=== PATIENT | female | born 1945 | race Caucasian/White ===

== ENCOUNTER 2018-11-09 03:32 | Observation (INO) | payer OTHER, BC ==
--- NOTE | 2018-11-09 03:34 | PDOC ---
History of Present Illness - General Chief Complaint: Irregular Heart Beat Stated Complaint: PALPITATIONS Time Seen by Provider: 11/09/18 03:34 - History of Present Illness Initial Comments: 11/09/18 03:54 This 72-year-old woman with a history of hyperlipidemia/osteoporosis presents with approximately 4 hour history of palpitations. Approximately 10:30 PM last night, she had onset of "fluttering" in her chest along with neck tightness and mild lightheadedness. She has had similar but much shorter (minutes long) episodes of the symptoms in the last few weeks. Previous episodes resolve spontaneously. She has a history of PVCs and has been seen by Dr. Schwab in the past(referred by her PMD, Dr Izaguirre). She has been told that she has mild bilateral carotid stenosis; she has been on statin medications for hyper lipidemia. No previous episodes of SVT or other sustained arrhythmia Past History - Past Medical History Allergies/Adverse Reactions: Allergies Allergy/AdvReac Type Severity Reaction Status Date / Time Penicillins Allergy Verified 07/18/13 23:59 Home Medications: Ambulatory Orders Calcium Carbonate [Calcium] 500 mg PO DAILY 07/19/13 Aspirin [Aspirin EC] 81 mg PO DAILY 11/09/18 Pravastatin Sodium [Pravachol (Nf)] 40 mg PO HS 11/09/18 - Immunization History Td Vaccination: Yes Immunization Up to Date: (UNSURE) - Suicide/Smoking/Psychosocial Hx Smoking History: Unknown if ever smoked Number of Cigarettes Smoked Daily: 0 Review of Systems - Review of Systems Able to Perform ROS?: Yes Comments:: 12 point review of systems is negative except for what is noted in the history of present illness *Physical Exam - Vital Signs Last Vital Signs Temp Pulse Resp BP Pulse Ox 97.7 F 87 14 108/80 100 11/09/18 03:32 11/09/18 07:13 11/09/18 07:13 11/09/18 07:13 11/09/18 07:13 - Physical Exam Comments: GENERAL: Adult female, alert and oriented 3, in no acute distress HEAD: Normal with no signs of trauma. EYES: PERRLA, EOMI, sclera anicteric, conjunctiva clear. ENT: Ears normal, nares patent, oropharynx clear without exudates. Dry mucous membranes. NECK: Normal range of motion, supple without lymphadenopathy, JVD, or masses. LUNGS: Breath sounds equal, clear to auscultation bilaterally. No wheezes, and no crackles. HEART: Regular, tachycardic; no murmur, rub or gallop appreciated. ABDOMEN:.normal bowel sounds No guarding,tenderness or rebound.No masses No distention. EXTREMITIES: Normal range of motion, no edema. No clubbing or cyanosis. No erythema, or tenderness. NEUROLOGICAL: Cranial nerves II through XII grossly intact. Normal speech. No focal neurological deficits. MUSCULOSKELETAL: Back non-tender to palpation, no CVA tenderness SKIN: Warm, Dry, normal turgor, no rashes or lesions noted. Moderate Sedation - Procedure Monitoring Vital Signs: Procedure Monitoring Vital Signs Temperature 97.7 F 11/09/18 03:32 Pulse Rate 87 11/09/18 07:13 Respiratory Rate 14 11/09/18 07:13 Blood Pressure 108/80 11/09/18 07:13 O2 Sat by Pulse Oximetry (%) 100 11/09/18 07:13 ED Treatment Course - LABORATORY CBC & Chemistry Diagram: 11/09/18 03:55 11/09/18 03:55 - ADDITIONAL ORDERS Additional order review: Laboratory Results 11/09/18 11/09/18 03:55 03:55 PT with INR 12.60 INR 1.07 Sodium 139 Potassium 3.9 Chloride 106 Carbon Dioxide 25 Anion Gap 9 BUN 18 Creatinine 1.0 Creat Clearance w eGFR 54.35 Random Glucose 100 Calcium 9.0 Total Bilirubin 0.3 AST 18 ALT 27 Alkaline Phosphatase 95 Creatine Kinase 68 Troponin I 0.07 H Total Protein 6.8 Albumin 3.6 11/09/18 03:55 RBC 4.46 MCV 94.4 MCHC 34.7 RDW 12.7 MPV 7.6 Neutrophils % 60.4 Lymphocytes % 27.6 Monocytes % 10.5 H Eosinophils % 1.1 Basophils % 0.4 - Medications Given in the ED: ED Medications Discontinued Medications Generic Name Dose Route Start Last Admin Trade Name Freq PRN Reason Stop Dose Admin Adenosine 6 mg 11/09/18 04:04 11/09/18 04:10 Adenocard - IVPUSH 11/09/18 04:05 6 mg ONCE ONE Administration Adenosine 6 mg 11/09/18 07:11 11/09/18 07:13 Adenocard - IVPUSH 11/09/18 07:12 6 mg ONCE ONE Administration Medical Decision Making - Medical Decision Making 11/09/18 04:22 This 72-year-old woman with a history of HLD and PVCs but no other cardiac issues known presents with several hour history of palpitations. Exam as noted. Twelve-lead electrocardiogram reveals narrow complex tachycardia at 176/minute without evidence of irregularity. No ST or T-wave abnormalities seen. EKG most consistent with SVT. Adenosine 6 mg IVP administered with prompt resolution of normal sinus rhythm . Repeat 12-lead electrocardiogram reveals normal sinus rhythm at 94 bpm. No evidence of acute ST or T-wave abnormalities. She has had occasional PVCs seen on monitor but no other arrhythmia present currently. Patient is alert and comfortable without further sensation of chest fluttering or neck tightness CBC/chemistry profile/troponin/INR sent 11/09/18 06:22 Patient continues to be comfortable in NSR heart rate averaging 90/ min and blood pressure most recently measured at 111/60. Laboratory evaluation is normal except for troponin of 0.07. 11/09/18 06:35 Case discussed with , patient will be admitted telemetry observation [facility]. 11/09/18 07:04 Patient called out that she has recurrence of fluttering in her chest Monitor reveals SVT recurrence. 11/09/18 07:17 Case signed out to Dr Solis NSR restored with Adenosine 6mg as per Dr Solis Case discussed with Dr Whitley : Metoprolol 25mg PO ordered *DC/Admit/Observation/Transfer Diagnosis at time of Disposition: History of supraventricular tachycardia, Elevated troponin - Discharge Dispostion Condition at time of disposition: Stable Decision to Admit order: Yes Decision to Admit order Date/Time: Decision to Admit Order Category Date Time Status Decision to Admit to Hospital Routine Admission 11/09/18 06:36 Active - Referrals - Patient Instructions - Post Discharge Activity
[2018-11-09] MEDS ORDERED: ADENOSINE 6 MG/2 ML VIAL IVPUSH ONE ×4 (04:04→07:11)
[2018-11-09 05:01] LABS: BASO % 0.4 % (0-2.0); EOS % 1.1 % (0-4.5); HEMATOCRIT 42.1 % (32.4-45.2); HEMOGLOBIN 14.6 GM/dL (10.7-15.3); LYMPH % 27.6 % (8-40); MCH 32.8 pg (25.7-33.7); MCHC 34.7 g/dl (32.0-36.0); MEAN CELL VOLUME 94.4 fl (80-96); MEAN PLT VOLUME 7.6 fl (7.5-11.1); MONO % 10.5 % (3.8-10.2); NEUT % 60.4 % (42.8-82.8); PLATELET COUNT 194 K/MM3 (134-434); RBC 4.46 M/mm3 (3.60-5.2); RDW 12.7 % (11.6-15.6); WHITE BLOOD COUNT 6.5 K/mm3 (4.0-10.0)
[2018-11-09 05:12] LABS: INR 1.07 (0.83-1.09); PROTHROMBIN TIME (PATIENT) 12.6 SEC (9.7-13.0)
[2018-11-09 06:17] LABS: ALBUMIN 3.6 g/dl (3.4-5.0); ALK PHOS 95 U/L (45-117); ANION GAP 9 MMOL/L (8-16); BILIRUBIN,TOTAL 0.3 mg/dL (0.2-1); BLOOD UREA NITROGEN 18 mg/dL (7-18); CHLORIDE 106 mmol/L (98-107); CO2 25 mmol/L (21-32); GLUCOSE,RANDOM 100 mg/dL (74-106); POTASSIUM 3.9 mmol/L (3.5-5.1); SGOT/AST 18 U/L (15-37); SGPT/ALT 27 U/L (13-61); SODIUM 139 mmol/L (136-145); TOT PROT 6.8 g/dl (6.4-8.2)
[2018-11-09] MEDS ORDERED: METOPROLOL TARTRATE 25 MG TABLET (FP) PO ONE (07:16)
[2018-11-09] MEDS ORDERED: METOPROLOL TARTRATE 50 MG TABLET (FP) ONE (07:24)
[2018-11-09 09:40] VITALS: BMI 21.5
--- NOTE | 2018-11-09 11:01 | HP ---
Admitting History and Physical - Admission Chief Complaint: palpitations History of Present Illness: 72 year old female with a history of hyperlipidemia/osteoporosis presented with approximately 4 hours of palpitations per ED report. Pt states she had some flutterings 2 weeks ago that went away. Then starting Saturday she did not feel well and wanted to rest but went to baby sit her grand children. Yesterday , she woke up and still didn't feel well, however did not take her pulse. She went downtown to a play, when she got home around 1030pm she started having palpitations, her neck felt tight and she couldn't lay flat. She was seen by Dr. Schwab for palpitations in the past however was only put on lipitor. In ED received adenosine x2 and started metoprolol. Pt is currently stable, she denies palpitations, cp, sob, dizziness, she wants to rest. History Source: Patient Limitations to Obtaining History: No Limitations - Past Medical History Cardiovascular: Yes: Hyperlipdemia ...: No - Smoking History Smoking history: Unknown if ever smoked Have you smoked in the past 12 months: No Aproximately how many cigarettes per day: 0 - Alcohol/Substance Use Hx Alcohol Use: No - Social History Usual Living Arrangement: Yes: With Spouse ADL: Independent Occupation: retired rn History of Recent Travel: No Home Medications - Allergies Allergies/Adverse Reactions: Allergies Allergy/AdvReac Type Severity Reaction Status Date / Time Penicillins Allergy Verified 07/18/13 23:59 - Home Medications Home Medications: Ambulatory Orders Calcium Carbonate [Calcium] 500 mg PO DAILY 07/19/13 Aspirin [Aspirin EC] 81 mg PO DAILY 11/09/18 Pravastatin Sodium [Pravachol (Nf)] 40 mg PO HS 11/09/18 Review of Systems - Review of Systems Constitutional: reports: No Symptoms Eyes: reports: No Symptoms HENT: reports: No Symptoms Neck: reports: No Symptoms Cardiovascular: reports: Palpitations Respiratory: reports: No Symptoms Gastrointestinal: reports: No Symptoms Genitourinary: reports: No Symptoms Musculoskeletal: reports: No Symptoms Integumentary: reports: No Symptoms Neurological: reports: No Symptoms Endocrine: reports: No Symptoms Hematology/Lymphatic: reports: No Symptoms Psychiatric: reports: No Symptoms Physical Examination Vital Signs: Vital Signs Temperature 98 F 11/09/18 09:27 Pulse Rate 77 11/09/18 09:27 Respiratory Rate 18 11/09/18 09:27 Blood Pressure 108/56 L 11/09/18 09:27 O2 Sat by Pulse Oximetry (%) 96 11/09/18 09:03 Constitutional: Yes: Well Nourished HENT: Yes: Other (dry mm) Neck: Yes: WNL Cardiovascular: Yes: Pulse Irregular, S1, S2 Respiratory: Yes: Regular, CTA Bilaterally Gastrointestinal: Yes: Normal Bowel Sounds, Soft Renal/: Yes: WNL Musculoskeletal: Yes: WNL Extremities: Yes: WNL Edema: No Peripheral Pulses WNL: Yes Integumentary: Yes: WNL Neurological: Yes: Alert, Oriented, Cran Nerves II-XII Intact Psychiatric: Yes: Alert, Oriented Labs: CBC, BMP 11/09/18 03:55 11/09/18 03:55 Imaging - Results Cat Scan: Report Reviewed (Head CT neg) Problem List - Problems (1) Elevated troponin Code(s): R74.8 - ABNORMAL LEVELS OF OTHER SERUM ENZYMES (2) History of supraventricular tachycardia Code(s): Z86.79 - PERSONAL HISTORY OF OTHER DISEASES OF THE CIRCULATORY SYSTEM Assessment/Plan 1. SVT - Now in SR after adenosine 6mg x2 - Given Metoprolol 25mg x1 - Start toprol xl 25mg daily now, monitor response - Cardiology consulted - Cont telemetry monitoring 2. Elevated trop - Repeat now - Likely due to above episode 2. HLD - Cont statin 3. DVT - Lovenox sq Visit type - Emergency Visit Emergency Visit: Yes ED Registration Date: 11/09/18 Care time: The patient presented to the Emergency Department on the above date and was hospitalized for further evaluation of their emergent condition. - New Patient This patient is new to me today: Yes Date on this admission: 11/09/18 - Critical Care Critical Care patient: No
[2018-11-09] MEDS: metoPROLOL SUCCINATE 25 MG TAB.SR.24H (FP) PO SCH (12:15)
--- NOTE | 2018-11-09 14:27 | CON.CARD ---
Consult Consult Specialty:: cardiology Reason for Consultation:: Palpitations; SVT - History of Present Illness Chief Complaint: Pt A&Ox3; tired; no chest pain or dyspnea. 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 Approximately 10:30 PM last night, she had onset of "fluttering" in her chest along with neck tightness and mild lightheadedness. She has had similar but much shorter (minutes long) episodes of the symptoms in the last few weeks. Previous episodes resolved spontaneously. She has a history of PVCs and has been seen by Dr. Schwab in the past(referred by her PMD, Dr Izaguirre). She has been told that she has mild bilateral carotid aretery stenosis; she has been on statin medications for hyperlipidemia (atorvastatin led to severe leg pains; she has been on pravastatin 40 mg qhs since 11/2017 with no adverse effects). No known previous episodes of SVT or other sustained arrhythmia, but the recent shorter episodes of palpitations were not recorded on EKG or Holter. - History Source History Provided By: Patient, Medical Record Limitations to Obtaining History: No Limitations - Past Medical History Cardio/Vascular: Yes: Hyperlipdemia Reproductive: Yes: Postmenopausal ...: No - Alcohol/Substance Use Hx Alcohol Use: No - Smoking History Smoking history: Unknown if ever smoked Have you smoked in the past 12 months: No Aproximately how many cigarettes per day: 0 - Social History ADL: Independent Occupation: retired rn History of Recent Travel: No Home Medications - Allergies Allergies/Adverse Reactions: Allergies Allergy/AdvReac Type Severity Reaction Status Date / Time Penicillins Allergy Verified 07/18/13 23:59 - Home Medications Home Medications: Ambulatory Orders Calcium Carbonate [Calcium] 500 mg PO DAILY 07/19/13 Aspirin [Aspirin EC] 81 mg PO DAILY 11/09/18 Pravastatin Sodium [Pravachol (Nf)] 40 mg PO HS 11/09/18 Family Disease History - Family Disease History Family Disease History: Heart Disease: Father ( of [place] age 83), Other: Mother (HTN; of CVA age 83) Review of Systems - Review of Systems Constitutional: reports: No Symptoms Eyes: reports: No Symptoms HENT: reports: No Symptoms Neck: reports: No Symptoms Cardiovascular: reports: Palpitations Respiratory: reports: No Symptoms Gastrointestinal: reports: No Symptoms Genitourinary: reports: No Symptoms Breasts: reports: No Symptoms Reported Musculoskeletal: reports: No Symptoms Integumentary: reports: No Symptoms Neurological: reports: No Symptoms Endocrine: reports: No Symptoms Hematology/Lymphatic: reports: No Symptoms Psychiatric: reports: No Symptoms - Risk Factors Known Risk Factors: Yes: Age Vital Signs: Vital Signs Temperature 98.9 F 11/09/18 14:13 Pulse Rate 86 11/09/18 14:13 Respiratory Rate 16 11/09/18 14:13 Blood Pressure 115/53 L 11/09/18 14:13 O2 Sat by Pulse Oximetry (%) 96 11/09/18 09:03 Constitutional: Yes: Anxious Eyes: Yes: WNL HENT: Yes: WNL Neck: Yes: WNL Respiratory: Yes: WNL Gastrointestinal: Yes: WNL Renal/: No: Anuria Cardiovascular: Yes: WNL JVD: No Carotid Bruit: No PMI: Non-Displaced Heart Sounds: Yes: S1, S2 Musculoskeletal: Yes: WNL Extremities: Yes: WNL Edema: No Peripheral Pulses WNL: Yes Integumentary: Yes: WNL Neurological: Yes: WNL Psychiatric: Yes: WNL - Other Data Labs, Other Data: CBC, BMP 11/09/18 03:55 11/09/18 03:55 INR, PTT INR 1.07 (0.83-1.09) 11/09/18 03:55 Troponin, BNP 11/09/18 11/09/18 03:55 11:56 Troponin I 0.07 H 0.23 H Troponin, BNP 11/09/18 11/09/18 03:55 11:56 Troponin I 0.07 H 0.23 H Abnormal Lab Results 11/09/18 11/09/18 11/09/18 03:55 03:55 11:56 Monocytes % 10.5 H Troponin I 0.07 H 0.23 H Triglycerides 11/09/18 11:56 Monocytes % Troponin I Triglycerides 157 H Ejection Fraction %: LVEF > or = 40 % Imaging - Results Chest X-ray: Image Reviewed EKG: Image Reviewed Other: Image Reviewed (telemetry: NSR; occasional PVCs) Problem List - Problems (1) Osteoporosis Code(s): M81.0 - AGE-RELATED OSTEOPOROSIS W/O CURRENT PATHOLOGICAL FRACTURE (2) Hyperlipidemia Assessment/Plan: On pravastatin. F/u lipid profile. Code(s): E78.5 - HYPERLIPIDEMIA, UNSPECIFIED (3) Elevated troponin Assessment/Plan: see under "hx of SVT" Code(s): R74.8 - ABNORMAL LEVELS OF OTHER SERUM ENZYMES (4) History of supraventricular tachycardia Assessment/Plan: Pt has been having palpitations over the past several weeks. Now with episode lasting about 4 hours. TNI 0.07-->0.23; CK wnl X 2; tni elevation likely from demand ischemia due to SVT x hours. EKG: initially SVT; now normal sinus rhythm; no acute ST-T changes, despite TNI elevation. Plan: Started metoprolol ER 25 mg daily; f/u BP and HR (years ago, pt said her HR was in the 40s, but she believes it was a machine error). F/u TSH. Pt for f/u with insurance claims adjuster (Dr. Schwab) as outpatient. Discussed options (continued medications; ablation therapy) with her. Code(s): Z86.79 - PERSONAL HISTORY OF OTHER DISEASES OF THE CIRCULATORY SYSTEM
[2018-11-09 15:32] LABS: CHOLESTEROL 173 mg/dL (50-200); HDL CHOLESTEROL 58 mg/dL (40-60); LDL CHOLESTEROL (ONLY DFH) 84 mg/dl (5-100); TRIGLYCERIDES 157 mg/dL (0-150)
[2018-11-09] MEDS ORDERED: METOPROLOL TARTRATE 25 MG TABLET (FP) PO SCH (22:00)
--- NOTE | 2018-11-09 22:13 | EKG ---
Test Reason : Blood Pressure : / mmHG Vent. Rate : 175 BPM Atrial Rate : 178 BPM P-R Int : 000 ms QRS Dur : 076 ms QT Int : 276 ms P-R-T Axes : 000 025 066 degrees QTc Int : 471 ms SUPRAVENTRICULAR TACHYCARDIA NONSPECIFIC ST ABNORMALITY ABNORMAL ECG NO PREVIOUS ECGS AVAILABLE Confirmed by MERY RUSH MD ([id number]) on 11/09/2018 10:13:23 PM Referred By: MD BYRNE Confirmed By:MERY RUSH MD
--- NOTE | 2018-11-09 22:13 | EKG ---
Test Reason : Blood Pressure : / mmHG Vent. Rate : 083 BPM Atrial Rate : 083 BPM P-R Int : 164 ms QRS Dur : 074 ms QT Int : 384 ms P-R-T Axes : 069 019 041 degrees QTc Int : 451 ms NORMAL SINUS RHYTHM NORMAL ECG WHEN COMPARED WITH ECG OF 09-NOV-2018 07:49, NO SIGNIFICANT CHANGE WAS FOUND Confirmed by MERY RUSH MD ([id number]) on 11/09/2018 10:13:10 PM Referred By: Vj HYDE Confirmed By:MERY RUSH MD
--- NOTE | 2018-11-09 22:13 | EKG ---
Test Reason : Blood Pressure : / mmHG Vent. Rate : 078 BPM Atrial Rate : 078 BPM P-R Int : 160 ms QRS Dur : 072 ms QT Int : 384 ms P-R-T Axes : 072 012 050 degrees QTc Int : 437 ms NORMAL SINUS RHYTHM NORMAL ECG WHEN COMPARED WITH ECG OF 09-NOV-2018 04:22, NO SIGNIFICANT CHANGE WAS FOUND Confirmed by MERY RUSH MD ([id number]) on 11/09/2018 10:13:13 PM Referred By: MAAME BLACKWOOD Confirmed By:MERY RUSH MD
[2018-11-10 08:17] LABS: ALBUMIN 3.2 g/dl (3.4-5.0); ALK PHOS 77 U/L (45-117); ANION GAP 7 MMOL/L (8-16); BILIRUBIN,TOTAL 0.5 mg/dl (0.2-1); BLOOD UREA NITROGEN 13 mg/dl (7-18); CALCIUM 8.7 mg/dl (8.5-10); CHLORIDE 103 mmol/L (98-107); CO2 27 mmol/L (21-32); CREATININE 0.9 mg/dl (0.55-1.3); GLUCOSE,RANDOM 93 mg/dl (74-106); MAGNESIUM 1.9 mg/dL (1.8-2.4); POTASSIUM 4.1 mmol/L (3.5-5.1); SGOT/AST 19 U/L (15-37); SGPT/ALT 19 U/L (13-61); SODIUM 137 mmol/L (136-145); TOT PROT 6.2 g/dl (6.4-8.2)
[2018-11-10 08:18] LABS: BASO % 0.4 % (0-2.0); EOS % 2.4 % (0-4.5); HEMATOCRIT 41.5 % (32.4-45.2); HEMOGLOBIN 13.4 GM/dl (10.7-15.3); LYMPH % 24.7 % (8-40); MCH 30.5 pg (25.7-33.7); MCHC 32.3 g/dl (32.0-36.0); MEAN CELL VOLUME 94.6 fl (80-96); MEAN PLT VOLUME 7.7 fl (7.5-11.1); MONO % 9.3 % (3.8-10.2); NEUT % 63.2 % (42.8-82.8); PLATELET COUNT 206 K/MM3 (134-434); RBC 4.39 M/mm3 (3.60-5.2); RDW 12.3 % (11.6-15.6); WHITE BLOOD COUNT 5.5 K/mm3 (4.0-10.8)
[2018-11-10 09:42] VITALS: BP 108/50; PULSE 92; TEMP 98.2
[2018-11-10] MEDS: metoPROLOL SUCCINATE 25 MG TAB.SR.24H (FP) PO SCH (09:42)
[2018-11-10] MEDS ORDERED: ENOXAPARIN NA (PORCINE) 40 MG/0.4 ML DISP.SYRIN SQ SCH (10:00)
--- NOTE | 2018-11-10 10:05 | PN ---
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 Approximately 10:30 PM last night, she had onset of "fluttering" in her chest along with neck tightness and mild lightheadedness. She has had similar but much shorter (minutes long) episodes of the symptoms in the last few weeks. Previous episodes resolved spontaneously. She has a history of PVCs and has been seen by Dr. Schwab in the past(referred by her PMD, Dr Izaguirre). She has been told that she has mild bilateral carotid aretery stenosis; she has been on statin medications for hyperlipidemia (atorvastatin led to severe leg pains; she has been on pravastatin 40 mg qhs since 11/2017 with no adverse effects). No known previous episodes of SVT or other sustained arrhythmia, but the recent shorter episodes of palpitations were not recorded on EKG or Holter. - Current Medication List Current Medications: Active Medications Enoxaparin Sodium (Lovenox -) 40 mg SQ DAILY [facility] Last Admin: 11/10/18 09:41 Dose: Not Given Metoprolol Succinate (Toprol Xl -) 25 mg PO DAILY [facility] Last Admin: 11/10/18 09:42 Dose: 25 mg - Objective Vital Signs: Vital Signs Temperature 98.2 F 11/10/18 09:39 Pulse Rate 92 H 11/10/18 09:39 Respiratory Rate 18 11/10/18 09:39 Blood Pressure 108/50 L 11/10/18 09:39 O2 Sat by Pulse Oximetry (%) 97 11/10/18 08:23 Eyes: Yes: WNL, Conjunctiva Clear, EOM Intact HENT: Yes: WNL, Atraumatic, Normocephalic Neck: Yes: WNL, Supple, Trachea Midline Cardiovascular: Yes: WNL, Regular Rate and Rhythm Respiratory: Yes: WNL, Regular, CTA Bilaterally Gastrointestinal: Yes: WNL, Normal Bowel Sounds Genitourinary: Yes: WNL Musculoskeletal: Yes: WNL Extremities: Yes: WNL Edema: No Integumentary: Yes: WNL Neurological: Yes: WNL, Alert, Oriented ...Motor Strength: WNL Psychiatric: Yes: WNL Labs: CBC, BMP 11/10/18 07:00 11/10/18 07:00 INR, PTT INR 1.07 (0.83-1.09) 11/09/18 03:55 Assessment/Plan - Problems (1) Osteoporosis Code(s): M81.0 - AGE-RELATED OSTEOPOROSIS W/O CURRENT PATHOLOGICAL FRACTURE (2) Hyperlipidemia Assessment/Plan: On pravastatin. F/u lipid profile. Code(s): E78.5 - HYPERLIPIDEMIA, UNSPECIFIED (3) Elevated troponin Assessment/Plan: see under "hx of SVT" Code(s): R74.8 - ABNORMAL LEVELS OF OTHER SERUM ENZYMES (4) History of supraventricular tachycardia Assessment/Plan: Pt has been having palpitations over the past several weeks. Now with episode lasting about 4 hours. TNI 0.07-->0.23; CK wnl X 2; tni elevation likely from demand ischemia due to SVT x hours. EKG: initially SVT; now normal sinus rhythm; no acute ST-T changes, despite TNI elevation. Plan: Started metoprolol ER 25 mg daily; f/u BP and HR (years ago, pt said her HR was in the 40s, but she believes it was a machine error). F/u TSH. Pt for f/u with fuselage framer (Dr. Schwab) as outpatient. Discussed options (continued medications; ablation therapy) with her. Code(s): Z86.79 - PERSONAL HISTORY OF OTHER DISEASES OF THE CIRCULATORY SYSTEM
--- NOTE | 2018-11-10 17:18 | DS ---
Physical Exam: SUBJECTIVE: Patient seen and examined OBJECTIVE: Vital Signs Period Temp Pulse Resp BP Sys/Membreno Pulse Ox Last 24 Hr 98.2 F-98.9 F 76-92 18-18 103-118/50-60 97-97 PHYSICAL EXAM GENERAL: The patient is awake, alert, and fully oriented, in no acute distress. HEAD: Normal with no signs of trauma. EYES: PERRL, extraocular movements intact, sclera anicteric, conjunctiva clear. ENT: Ears normal, nares patent, oropharynx clear without exudates, moist mucous membranes. NECK: Trachea midline, full range of motion, supple. LUNGS: Breath sounds equal, clear to auscultation bilaterally, no wheezes, no crackles, no accessory muscle use. HEART: Regular rate and rhythm, S1, S2 without murmur, rub or gallop. ABDOMEN: Soft, nontender, nondistended, normoactive bowel sounds, no guarding, no rebound, no hepatosplenomegaly, no masses. EXTREMITIES: 2+ pulses, warm, well-perfused, no edema. NEUROLOGICAL: Cranial nerves II through XII grossly intact. Normal speech, gait not observed. PSYCH: Normal mood, normal affect. SKIN: Warm, dry, normal turgor, no rashes or lesions noted. LABS Laboratory Results - last 24 hr 11/10/18 11/10/18 07:00 07:00 WBC 5.5 RBC 4.39 Hgb 13.4 Hct 41.5 MCV 94.6 MCH 30.5 MCHC 32.3 RDW 12.3 Plt Count 206 MPV 7.7 Absolute Neuts (auto) 3.5 Neutrophils % 63.2 Lymphocytes % 24.7 Monocytes % 9.3 Eosinophils % 2.4 Basophils % 0.4 Sodium 137 Potassium 4.1 Chloride 103 Carbon Dioxide 27 Anion Gap 7 L BUN 13 Creatinine 0.9 Creat Clearance w eGFR > 60 Random Glucose 93 Calcium 8.7 Magnesium 1.9 Total Bilirubin 0.5 AST 19 ALT 19 Alkaline Phosphatase 77 Total Protein 6.2 L Albumin 3.2 L HOSPITAL COURSE: Date of Admission:11/09/18 Date of Discharge: 11/10/18 Minutes to complete discharge: 35 Discharge Summary Reason For Visit: TACHYCARDIA/ELEVATED TROPONIN LEVELS Condition: Stable - Instructions Diet, Activity, Other Instructions: It is recommended you follow up with Dr. Schwab within one week of your discharge for further cardiac evaluation. Referrals: Jase Izaguirre MD [Primary Care Provider] - German Schwab MD [Staff Physician] - 1 Week Disposition: HOME - Home Medications Comprehensive Discharge Medication List: Ambulatory Orders Calcium Carbonate [Calcium] 500 mg PO DAILY 07/19/13 Aspirin [Aspirin EC] 81 mg PO DAILY 11/09/18 Pravastatin Sodium [Pravachol -] 40 mg PO HS 11/09/18 Metoprolol Succinate [Toprol XL -] 25 mg PO DAILY #30 tab.sr.24h 11/10/18 This patient is new to me today: Yes Date on this admission: 11/10/18 Emergency Visit: Yes ED Registration Date: 11/09/18 Care time: The patient presented to the Emergency Department on the above date and was hospitalized for further evaluation of their emergent condition. Critical Care patient: No - Discharge Referral Referred to [facility] Med P.C.: No
--- NOTE | 2018-11-10 21:29 | EKG ---
Test Reason : Blood Pressure : / mmHG Vent. Rate : 094 BPM Atrial Rate : 094 BPM P-R Int : 164 ms QRS Dur : 070 ms QT Int : 344 ms P-R-T Axes : 063 006 055 degrees QTc Int : 430 ms NORMAL SINUS RHYTHM NORMAL ECG WHEN COMPARED WITH ECG OF 09-NOV-2018 03:42, VENT. RATE HAS DECREASED BY 81 BPM Confirmed by MERY RUSH MD ([id number]) on 11/10/2018 9:28:44 PM Referred By: MD BYRNE Confirmed By:MERY RUSH MD
== END 2018-11-10 11:42 | disposition home or self-care (01) ==
LOC: FER 03:32 → UNDOADMOB 06:53 → FM/S 06:53
PROVIDERS: ADMIT Internal Medicine; ATTEND Nurse Practitioner Acute Care
PROC: 3E033GC Introduction of Other Therapeutic Substance into Peripheral Vein, Percutaneous Approach (ICD-10-PCS; principal; 2018-11-09)
DX: R77.8 Other specified abnormalities of plasma proteins (principal); E78.5 Hyperlipidemia, unspecified; M81.0 Age-related osteoporosis without current pathological fracture; Z86.79 Personal history of other diseases of the circulatory system
CPT/HCPCS: 36415; 80053; 80061; 82550; 83735; 84443; 84484; 85025; 85610; 93005; 96374; 96376; 99285-25; G0378

== ENCOUNTER 2023-12-16 11:58 | Emergency (ER) | payer OTHER, BC ==
[2023-12-16] MEDS ORDERED: LIDOCAINE 5% TOPICAL PATCH ONE (12:34)
[2023-12-16] MEDS ORDERED: KETOROLAC TROMETHAMINE 30 MG/1 ML VIAL ONE (12:34)
[2023-12-16] MEDS ORDERED: ACETAMINOPHEN 325 MG TABLET (FP) ONE (12:34)
[2023-12-16] MEDS: LIDOCAINE 5% TOPICAL PATCH TP ONE (12:35)
[2023-12-16] MEDS: KETOROLAC TROMETHAMINE 30 MG/1 ML VIAL IM ONE (12:35)
[2023-12-16] MEDS: ACETAMINOPHEN 325 MG TABLET (FP) PO ONE (12:37)
[2023-12-16 13:07] VITALS: BP 130/63; PULSE 98; RESP 20; TEMP 98.3; BMI 22.1
== END 2023-12-16 14:22 | disposition home or self-care (01) ==
LOC: FER 11:58
PROC: 3E0233Z Introduction of Anti-inflammatory into Muscle, Percutaneous Approach (ICD-10-PCS; principal; 2023-12-16)
DX: M54.6 Pain in thoracic spine (principal); M25.511 Pain in right shoulder; M79.621 Pain in right upper arm
CPT/HCPCS: 73030-TC-RT-FY; 99284-25